=== PATIENT | male | born 2000 | race African-American/Black ===

== ENCOUNTER 2024-05-08 14:48 | Emergency (ER) | payer MEDICAID ==
[~2024-05-08] VITALS: Ht 182.9 cm; Wt 68.0 kg
[2024-05-08] MEDS ORDERED: TOPI50TA24 PO (15:51)
[2024-05-08 16:07] VITALS: BP 130/79; O2SAT 100
== END 2024-05-08 16:09 | disposition home or self-care (01) ==
LOC: ER 14:48
DX: G40.909 Epilepsy, unspecified, not intractable, without status epilepticus (principal); Z76.0 Encounter for issue of repeat prescription; Z79.899 Other long term (current) drug therapy
CPT/HCPCS: A4606; A4663